=== PATIENT | female | born 1950 | race Caucasian/White ===

== ENCOUNTER 2021-09-24 18:18 | Observation (INO) | payer MEDICARE, BC ==
[2021-09-24] MEDS ORDERED: Furosemide 40 MG/4 ML VIAL ONE (19:28)
[2021-09-24] MEDS ORDERED: hydrALAZINE 20 MG/ML VIAL ONE (19:28)
[2021-09-24 19:29] LABS: #Basophils 0.1 10x3/uL (0.0-0.2); #Eosinphils 0.1 10x3/uL (0.0-0.5); #Monocytes 0.6 10x3/uL (0.0-1.1); #Neutrophils 4.3 10x3/uL (1.5-8.4); %Basophils 0.8 % (0.0-2.0); %Eosinophils 1.9 % (0.0-6.0); %Lymphocytes 31.6 % (18.0-47.0); %Monocytes 7.9 % (0.0-10.0); %Neutrophils 57.5 % (40.0-75.0); Hemoglobin 12.3 g/dL (12.0-15.5); Mean Corpuscular HGB CONC 34.6 g/dL (32.0-36.0); Mean Corpuscular Hemoglobin 29.1 pg (27.0-33.0); Mean Corpuscular Volume 84.2 fl (81.6-98.3); Mean Platelet Volume 9.5 fl (7.4-10.4); Platelet Count 292 10x3/uL (150-450); RBC Distribution Width 12.5 % (11.5-14.5); Red Blood Cell (RBC) Count 4.23 10x6/uL (3.90-5.03); White Blood Cell (WBC) Count 7.5 10x3/uL (3.5-10.5)
[2021-09-24] MEDS ORDERED: Nitroglycerin 2% Ointment 1 INCH/1 GM Packet ONE (19:29)
[2021-09-24 19:43] LABS: ALT (SGPT) 15 U/L (8-55); AST (SGOT) 12 U/L (5-34); Albumin 4.2 g/dL (3.4-4.8); Alkaline Phosphatase 64 U/L (40-110); Anion Gap 12 mmol/L (10-20); BUN (Urea Nitrogen) 8 mg/dL (9.8-20.1); Bilirubin, Total 0.4 mg/dL (0.2-1.2); CK (CPK) 73 U/L (29-168); Calc. Creatinine Clearance 0 mL/min (70-130); Calcium 10.1 mg/dL (7.8-10.44); Carbon Dioxide 25 mmol/L (23-31); Chloride 103 mmol/L (98-107); Estimated GFR 88; Globulin 2.4 g/dL (2.4-3.5); Glucose 101 mg/dL (83-110); Lipase 10 U/L (8-78); Potassium 3.9 mmol/L (3.5-5.1); Protein, Total 6.6 g/dL (5.8-8.1); Sodium 136 mmol/L (136-145)
[2021-09-24 19:54] LABS: Bilirubin Neg (Negative); Blood, Urine 10 (Negative); Clarity Clear (Clear); Glucose, Urine (Dipstick) Normal (Negative); Ketone, Urine Negative (Negative); Leukocyte Negative (Negative); Nitrite Negative (Negative); Protein, Urine (Dipstick) Negative (Neg-Trace); Specific Gravity, Urine 1.005 (1.002-1.036); Urobilinogen Normal mg/dL (Less than 2)
[2021-09-24 20:02] LABS: WBC/HPF 0-3 HPF (0-3)
[2021-09-24 20:03] LABS: Bacteria/HPF Rare-Few HPF (None Seen); Squamous Epithelial 0-3 HPF (0-3)
[2021-09-24] MEDS ORDERED: Aspirin Chewable 81 MG TAB ONE (20:42)
[2021-09-24] MEDS ORDERED: Ondansetron PF 4 MG/2 ML Vial IVP PRN ×2 (22:06→22:20)
[2021-09-24 22:16] VITALS: BMI 34.7
[2021-09-24] MEDS ORDERED: hydrALAZINE 20 MG/ML VIAL SLOW IVP PRN (22:25)
[2021-09-24] MEDS ORDERED: Nitroglycerin 2% Ointment 1 INCH/1 GM Packet TOP SCH (22:30)
[2021-09-24] MEDS ORDERED: Aspirin 81 mg Enteric Coated Tablet PO SCH (22:45)
[2021-09-24 22:54] LABS: Magnesium 1.9 mg/dL (1.6-2.6)
[2021-09-25] MEDS: Acetaminophen 325 MG TAB PO PRN ×3 (00:31→11:07)
[2021-09-25 03:42] LABS: SARS-CoV-2 NAA Rapid Test Not Detected (NotDetected)
[2021-09-25 04:13] LABS: #Monocytes 0.5 10x3/uL (0.0-1.1); %Basophils 0.3 % (0.0-2.0); %Lymphocytes 10.9 % (18.0-47.0); %Monocytes 5.2 % (0.0-10.0); %Neutrophils 83.3 % (40.0-75.0); Hemoglobin 12.3 g/dL (12.0-15.5); Mean Corpuscular HGB CONC 34.6 g/dL (32.0-36.0); Mean Corpuscular Hemoglobin 29.1 pg (27.0-33.0); Mean Corpuscular Volume 83.9 fl (81.6-98.3); Mean Platelet Volume 9.3 fl (7.4-10.4); Platelet Count 309 10x3/uL (150-450); RBC Distribution Width 12.6 % (11.5-14.5); Red Blood Cell (RBC) Count 4.23 10x6/uL (3.90-5.03); White Blood Cell (WBC) Count 9.6 10x3/uL (3.5-10.5)
[2021-09-25 04:28] LABS: Anion Gap 12 mmol/L (10-20); BUN (Urea Nitrogen) 10 mg/dL (9.8-20.1); Calc. Creatinine Clearance 83 mL/min (70-130); Calcium 9.6 mg/dL (7.8-10.44); Carbon Dioxide 29 mmol/L (23-31); Cardiac Risk 3.4 (Less than 4.5); Chloride 99 mmol/L (98-107); Cholesterol 217 mg/dl (< 200 Desired); Estimated GFR 75; Glucose 131 mg/dL (83-110); HDL Cholesterol 64 mg/dL (>60 Neg Risk); LDL Cholesterol, Calculated 142 mg/dL; Potassium 4.3 mmol/L (3.5-5.1); Sodium 136 mmol/L (136-145); Triglycerides 57 mg/dL (Less than 150)
[2021-09-25] MEDS: Nitroglycerin 2% Ointment 1 INCH/1 GM Packet TOP SCH ×3 (05:20→23:52)
[2021-09-25] MEDS: HYDROcodone/Acetaminophen 7.5/325 mg Tablet PO PRN ×2 (06:39→18:54)
[2021-09-25] MEDS ORDERED: Losartan Potassium 50 MG TAB PO SCH (09:00)
[2021-09-25] MEDS: Enoxaparin Sodium 40 MG/0.4 ML SYRINGE SC SCH (10:53)
[2021-09-25] MEDS: Nebivolol HCl 5 MG TAB PO SCH (10:54)
[2021-09-25] MEDS: hydrALAZINE 25 MG TAB PO SCH ×3 (10:55→21:24)
[2021-09-25] MEDS: Ezetimibe 10 MG TAB PO SCH (10:55)
[2021-09-26 05:25] VITALS: BP 139/87; TEMP 97.4
[2021-09-26] MEDS: Acetaminophen 325 MG TAB PO PRN (05:36)
[2021-09-26] MEDS: Nitroglycerin 2% Ointment 1 INCH/1 GM Packet TOP SCH (06:31)
[2021-09-26] MEDS: HYDROcodone/Acetaminophen 7.5/325 mg Tablet PO PRN (07:18)
[2021-09-26] MEDS ORDERED: Losartan Potassium 50 MG TAB PO SCH (09:00)
[2021-09-26] MEDS: hydrALAZINE 25 MG TAB PO SCH (09:10)
[2021-09-26] MEDS: Nebivolol HCl 5 MG TAB PO SCH (09:10)
[2021-09-26] MEDS: Enoxaparin Sodium 40 MG/0.4 ML SYRINGE SC SCH (09:11)
[2021-09-26] MEDS: Ezetimibe 10 MG TAB PO SCH (09:11)
== END 2021-09-26 10:00 | disposition home or self-care (01) ==
LOC: CSHERS 18:18 → CSHTELE 21:44 → INTOOBSV 21:44
PROVIDERS: ADMIT Internal Medicine; ATTEND Internal Medicine
DX: I16.1 Hypertensive emergency (principal); I10 Essential (primary) hypertension; R07.89 Other chest pain; K21.9 Gastro-esophageal reflux disease without esophagitis; E78.5 Hyperlipidemia, unspecified; M79.7 Fibromyalgia; Z79.899 Other long term (current) drug therapy; Z88.2 Allergy status to sulfonamides; Z88.8 Allergy status to other drugs, medicaments and biological substances; Z20.822 Contact with and (suspected) exposure to COVID-19
CPT/HCPCS: 70450; 71045; 80048; 80061; 82550; 83690; 83735; 83880; 84484 ×3; 85025; 93005 ×2; 93306; 96372 ×2; 96374; 96375; 99285; G0378 ×2; U0002; 36415; 80053; 81003; 81015; 84443; 93010; J0360; J1650; J1940; J2405; U0003; U0005

== ENCOUNTER 2022-07-16 01:37 | Emergency (ER) | payer MEDICARE, BC ==
[2022-07-16] MEDS ORDERED: HYDROcodone/Acetaminophen 10/325 mg Tablet ONE (02:39)
== END 2022-07-16 03:28 | disposition home or self-care (01) ==
LOC: CSHERS 01:37
DX: M54.50 Low back pain, unspecified (principal); K21.9 Gastro-esophageal reflux disease without esophagitis; I10 Essential (primary) hypertension; Z79.899 Other long term (current) drug therapy; Z79.01 Long term (current) use of anticoagulants
CPT/HCPCS: 99283

== ENCOUNTER 2024-11-09 13:25 | Outpatient (CLI) | payer MEDICARE | END 2024-11-09 13:26 | disposition home or self-care (01) | LOC: CSHMAMMO 13:25 | PROVIDERS: ATTEND Family Medicine | DX: R92.8 Other abnormal and inconclusive findings on diagnostic imaging of breast (principal) | CPT/HCPCS: 77065; G0279 ==

== ENCOUNTER 2024-11-12 23:25 | Emergency (ER) | payer MEDICARE ==
[2024-11-12] MEDS ORDERED: Dexamethasone 10 MG/ML VIAL ONE (23:53)
== END 2024-11-13 00:26 | disposition home or self-care (01) ==
LOC: CSHERS 23:25
DX: U07.1 COVID-19 (principal); K21.9 Gastro-esophageal reflux disease without esophagitis; I10 Essential (primary) hypertension; Z79.899 Other long term (current) drug therapy
CPT/HCPCS: 87426; 87430; J1100; 71045; 87081